=== PATIENT | male | born 2005 | race Two or more races ===

== ENCOUNTER 2024-10-24 13:03 | Emergency (ER) | payer OTHER, SELFPAY ==
[2024-10-24 13:17] VITALS: BP 124/80; PULSE 70; RESP 18; TEMP 37.2; O2SAT 99; BMI 27.1
--- NOTE | 2024-10-24 13:28 | EDNOTE_ITS ---
ED Wound/Laceration-RME/HPI General Chief Complaint: Wound/Laceration Stated Complaint: Left ring finger laceration Time Seen by Provider: 10/24/24 13:22 Arrival date/time: 10/24/24 13:03 RME / HPI RME / HPI narrative: 19-year-old male patient came in for evaluation regarding laceration to the left ring finger. Incident happened few minutes prior to ER visit, patient sustained a laceration to the left ring finger with a metal plate. Patient denies any other injury. Patient is able to bend the finger but with some limitation. According to him just pain. Denies any other complaints. Related Data Previous Rx's ?Medication ?Instructions ?Recorded cephalexin 500 mg capsule 500 mg PO TID 7 days #21 cap s 10/24/24 ibuprofen 800 mg tablet 800 mg PO Q8H PRN pain #30 t abs 10/24/24 Allergies Allergy/AdvReac Type Severity Reaction Status Date / Time No Known Drug Allergies Allergy Verified 10/24/24 13:09 Review of Systems Review of Systems Narrative Review of Systems: Review of system reviewed and within normal limits except mentioned in HPI ED Exam Narrative Physical exam: VITAL SIGNS: Reviewed. GENERAL APPEARANCE: Alert and interactive, follows commands, no acute distress, HEAD AND FACE: Non-traumatic. ENT: PERRL, pink conjunctivitis, eyelid no trauma, Mucous membrane moist. NECK: Supple, nontender, no nuchal rigidity. CHEST: No tenderness, no crepitus, no paradoxical movement, no retractions. LUNGS: Clear, well ventilated, symmetric, no rales, no wheezing, no ronchi, no stridor, good breath sounds bilaterally. HEART: Regular rate, regular rhythm, no murmur, no gallops. ABDOMEN: Soft, positive bowel sounds, nondistended, no guarding, nontender, no rebound, no masses, RECTAL: Deferred. GENITAL: Deferred. NEUROLOGICAL: Gross motor function intact sensory function intact, Appropriate for age. MUSCULOSKELETAL: low back nontender, full range of motion. EXTREMITIES: +2 cm laceration, left ring finger tip palmar aspect, full range of motion. SKIN: Color pink, dry, no rash, no lacerations, no abrasions, no contusions. LYMPHATICS: Deferred. Course Quality Measures none Orders Category Date Time Status XR finger LT min 2V Stat Exams 10/24/24 13:28 Completed Ketorolac Inj [Toradol Inj] Med 10/24/24 13:28 Discontinued 30 mg IM X1 ONE Lidocaine 1% 20 ml [Xylocaine 1% 20 ML] Med 10/24/24 13:28 Discontinued 10 ml INFL X1 ONE TET,DIP/PERT AC (Adult)-Tdap [Boostrix Adult (Tdap) Med 10/24/24 13:28 Discontinued Vacc] 0.5 ml IMI .ONCE ONE Vital Signs Vital signs: Vital Signs Temperature 99 F 10/24/24 13:17 Pulse Rate 70 10/24/24 13:17 Respiratory Rate 18 10/24/24 13:17 Blood Pressure 124/80 10/24/24 13:17 Pulse Oximetry (%) 99 10/24/24 13:17 Oxygen Delivery Method Room Air 10/24/24 13:17 Wound / Laceration MDM Narrative MDM Narrative:: 19-year-old male patient came in for evaluation regarding laceration to the left ring finger. Incident happened few minutes prior to ER visit, patient sustained a laceration to the left ring finger with a metal plate. Patient denies any other injury. Patient is able to bend the finger but with some limitation. According to him just pain. Denies any other complaints. Repair and suturing was done by me see procedure notes. Patient received Boostrix. Post suturing, patient was able to bend the finger at DIP joints but with some limitation due to swelling. Patient was advised to monitor closely and if he is unable to bend the finger he needs to see a hand specialist. Patient agrees with the plan. Patient data External records reviewed:: None Clinical information provided by:: none Social determinants that could affect healthcare access:: none Patient has the following chronic illnesses:: None How is presenting disease/condition affected by chronic disease/condition?: no chronic disease Evaluation data The following diagnostics were reviewed and interpreted by me:: radiology exam(s) Lab and/or radiology exams considered but not ordered:: None Interpretation Summary: x-ray of the finger came back with no fracture dislocation Medications / Prescriptions Medications or Prescriptions considered but not ordered:: None Medication administrations:: Medication Administration History Discontinued Medications Diphtheria/Tetanus/Acell Pertussis (Diphth,Pertuss(Acell),Tet Vac 0.5 Ml Syr- Adult) 0.5 ml IMi .ONCE ONE Stop: 10/24/24 13:29 Last Admin: 10/24/24 14:06 Dose: 0.5 ml Documented By: Ketorolac Tromethamine (Ketorolac Inj 60 Mg/2 Ml Vial) 30 mg IM X1 ONE Stop: 10/24/24 13:29 Last Admin: 10/24/24 14:05 Dose: 30 mg Documented By: Lidocaine HCl (Lidocaine Hcl 1% 20 Ml Vial) 10 ml INFL X1 ONE Stop: 10/24/24 13:29 Last Admin: 10/24/24 14:05 Dose: 10 ml Documented By: Toradol Boostrix Consultations Consultation(s) initiated? (list below): No Diagnosis Wound Differential Diagnosis: laceration, abrasion and avulsion of skin Most likely diagnosis given after review of the tests above:: None Admission Indicated Admission indicated?: not indicated Admission Request Was there a request for admission?: No Disposition Plan Disposition Plan: Discharge Discharge Attestation Discharge Attestation: The patient and all family members were given an opportunity to ask questions and understood the discharge instructions. Discharge instructions specifically effects, indications for sooner follow up or return to the emergency department, and the expected course of current diagnosis. Patient condition: Stable Discharge Plan Plan Patient Disposition: HOME (Self Care) Discharge Disposition comment: Stable Prescriptions/Referrals Prescriptions/Med Rec: New cephalexin 500 mg capsule 500 mg PO TID 7 Days Qty: 21 0RF ibuprofen 800 mg tablet 800 mg PO Q8H PRN (Reason: pain) Qty: 30 0RF Problem List Clinical Impression: Finger laceration Patient/Caregiver Discharge Instructions Discharge Activity: activity as tolerated Education Materials: ED Laceration: All Closures Additional Instructions: Thank you for the opportunity for serving you today. You are stable for discharged . You are advised to: Follow-up with your PCP in 1 to 2 days Return to ED for worsening of symptoms Increase oral fluids Take medication as prescribed Daily dressing with bacitracin as needed for removal of sutures in 7 to 10 days As you are Worker's Comp. MD to refer you to a hand specialist if there is some limitation of flexion of your finger once the swelling is gone Print Language: German Stand Alone Forms: Char Award Info., Patient Portal Info Letter MARISOL/NORI Supervising Physician MARISOL/NORI Supervising Physician: MD Sangita
--- NOTE | 2024-10-24 13:28 | XR_ITS ---
Examination: Fingers, left hand fourth digit 3 views Technique: AP, oblique, lateral views left hand fourth digit 3 views. Exam date and time: 10/24/2024 1334 hours INDICATIONS: Laceration to the fourth digit today with pain and swelling. FINDINGS: No acute fracture No foreign body IMPRESSION: No opaque foreign body
[2024-10-24] MEDS: LIDOCAINE HCL 1% 20 ML VIAL 10 ML INFL (14:05)
[2024-10-24] MEDS: KETOROLAC INJ 60 MG/2 ML VIAL 30 MG IM (14:05)
[2024-10-24] MEDS: DIPHTH,PERTUSS(ACELL),TET VAC 0.5 ML SYR- ADULT IMi (14:06)
== END 2024-10-24 15:43 | disposition home or self-care (01) ==
PROVIDERS: Emergency Provider Emergency Medicine
DX: S61.215A Laceration without foreign body of left ring finger without damage to nail, initial encounter (principal); W45.8XXA Other foreign body or object entering through skin, initial encounter; Y93.89 Activity, other specified; Y92.89 Other specified places as the place of occurrence of the external cause; Y99.0 Civilian activity done for income or pay; Z23 Encounter for immunization
CPT/HCPCS: 12001; 73140; 90471; 90715; 96372; 99283; J1885; J3490